=== PATIENT | male | born 1945 | race Caucasian/White ===

== ENCOUNTER → 2017-04-04 | Outpatient (CLI) | payer MEDICARE, BC ==
[~2017-04-04] MED LIST: COUMADIN PO; FLOMAX0.4 M1 DOB; GLUCOTROL PO; HCTZ PO; ZANTAC PO
[2017-04-04 15:01] LABS: HEMATOCRIT 40.2 % (38.0-50.0); HEMOGLOBIN 13.6 gm/dL (13.0-16.0); MEAN CELL VOLUME 91.5 FL (83-96); MEAN CORPUSCULAR HGB CONC 33.9 g/dL (30-36); MEAN PLATELET VOLUME 9.9 FL (6.5-11.5); RED BLOOD COUNT 4.39 X10e (3.90-5.60); RED CELL DISTRIBUTION WIDTH 13.9 % (11.0-15.5); WHITE BLOOD COUNT 5.1 X10e3 (4.0-10.5)
[2017-04-04 15:14] LABS: PROTHROMBIN TIME (PATIENT) 34.4 SECONDS (9.5-12.4)
[2017-04-04 15:25] LABS: ALBUMIN SERUM 3.7 g/dL (3.5-5.0); ALKALINE PHOSPHATASE 33 U/L (32-92); ALT (SGPT) 27 U/L (10-40); AST (SGOT) 23 U/L (10-42); BILIRUBIN,TOTAL 0.2 mg/dL (0.2-2.0); BLOOD UREA NITROGEN 35 mg/dL (9-23); BUN/CREATININE RATIO 29.16; CALCIUM SERUM 8.9 mg/dL (8.4-10.2); CARBON DIOXIDE 23 mmol/L (22-31); CHLORIDE 102 mmol/L (100-111); CHOLESTEROL 223 mg/dL (0-200); CREATININE SERUM 1.2 mg/dL (0.6-1.4); GLOM FILT RATE Estimated 60.1 mL/min (>60); GLUCOSE FASTING 381 mg/dL (70-110); HDL CHOLESTEROL 33 mg/dL (29-75); POTASSIUM 4.3 mmol/L (3.5-5.1); PROTEIN TOTAL SERUM 7.1 g/dL (6.0-8.3); SODIUM 130 mmol/L (135-145)
[2017-04-04 15:29] LABS: TRIGLYCERIDES 492 mg/dL (10-160)
[2017-04-04 15:42] LABS: THYROID STIMULATING HORMONE 1.29 uIU/ml (0.34-5.60)
[2017-04-04 17:04] LABS: FREE THYROXIN (T4) 0.96 ng/dL (0.58-1.64)
[2017-04-05 10:49] LABS: TESTOSTERONE TOTAL 128.18 ng/dL (17-781)
== END | disposition home or self-care (01) ==
LOC: SLAB 14:24
PROVIDERS: Internal Medicine
DX: I10 Essential (primary) hypertension (principal); N40.1 Benign prostatic hyperplasia with lower urinary tract symptoms; D51.8 Other vitamin B12 deficiency anemias; E29.1 Testicular hypofunction; F55.8 Abuse of other non-psychoactive substances; R73.09 Other abnormal glucose; R53.83 Other fatigue; R63.5 Abnormal weight gain; Z79.01 Long term (current) use of anticoagulants
CPT/HCPCS: 36415; 80053; 80061; 82306; 82728; 83036; 84403; 84439; 84443; 85027; 85610

== ENCOUNTER → 2017-06-01 | Outpatient (CLI) | payer MEDICARE, OTHER ==
[2017-06-01 13:43] LABS: INR 4.3; PROTHROMBIN TIME (PATIENT) 49.4 SECONDS (9.5-12.4)
== END | disposition home or self-care (01) ==
LOC: SLAB 12:55
PROVIDERS: Internal Medicine
DX: Z51.81 Encounter for therapeutic drug level monitoring (principal); Z79.01 Long term (current) use of anticoagulants
CPT/HCPCS: 36415; 85610

== ENCOUNTER → 2017-06-06 | Outpatient (CLI) | payer MEDICARE, OTHER ==
[2017-06-06 11:45] LABS: INR 1.3; PROTHROMBIN TIME (PATIENT) 14.7 SECONDS (9.5-12.4)
== END | disposition home or self-care (01) ==
LOC: SLAB 11:18
PROVIDERS: Internal Medicine
DX: Z51.81 Encounter for therapeutic drug level monitoring (principal); Z79.01 Long term (current) use of anticoagulants
CPT/HCPCS: 36415; 85610

== ENCOUNTER → 2017-06-12 | Outpatient (CLI) | payer MEDICARE, OTHER ==
[2017-06-12 11:23] LABS: PROTHROMBIN TIME (PATIENT) 55.4 SECONDS (9.5-12.4)
[2017-06-12 14:33] LABS: INR 4.8
== END | disposition home or self-care (01) ==
LOC: SLAB 10:51
PROVIDERS: Internal Medicine
DX: Z51.81 Encounter for therapeutic drug level monitoring (principal); Z79.01 Long term (current) use of anticoagulants
CPT/HCPCS: 36415; 85610

== ENCOUNTER → 2017-06-15 | Outpatient (CLI) | payer MEDICARE, OTHER ==
[2017-06-15 11:13] LABS: INR 2.8; PROTHROMBIN TIME (PATIENT) 31.8 SECONDS (9.5-12.4)
== END | disposition home or self-care (01) ==
LOC: SLAB 10:52
PROVIDERS: Internal Medicine
DX: Z51.81 Encounter for therapeutic drug level monitoring (principal); Z79.01 Long term (current) use of anticoagulants
CPT/HCPCS: 36415; 85610